=== PATIENT | female | born 1985 | race Caucasian/White ===

== ENCOUNTER 2016-05-17 17:38 | Inpatient (IN) | payer OTHER ==
[2016-05-17 18:17] VITALS: BMI 25.6
--- NOTE | 2016-05-17 20:55 | PCMAN ---
OB Admission Note - History : 3 Term: 2 : 0 Abortions (S&E): 0 Livin Gestational Age (weeks): 41 Days (#/7): 0 Admit Cervical Dilation:: 4.5 Admit Cervical Effacement (%):: 90 Admit Station:: -2 Admit Presentaton:: vtx Membrane Status: Intact Labor Onset (Date): 05/16/16 Labor Onset (Time): 04:30 Contractions: Yes Contraction Frequency:: 3-5 EFW:: 3800 Summary of Course:: 31yo jose 05/10/16; admitted in labor at 4-5cm. Pt has since progressed to ; cephalic. course is uncomplicated. GBS neg A-NEG, s/p rhogam at 27w Rubella non immune Pt declines IV, AROM at this time - Labs Blood Type: A (-) negative Rubella Status: Non-immune GBS Status: Negative - Physical Exam General: Mild Distress Psych/Mental Status: Mood/Affect Appropriate Abdomen: Other (efw 3800g) Genitourinary: Other (cx=/-, cephalic, soft, anterior) - Additional Comments 31 yo , admitted in labor FHT 130's, mod juan antonio, no decels TOCO ctx q4 min may use intermittent monitoring may ambulate further expectant management
--- NOTE | 2016-05-17 23:52 | PCMDEL ---
Delivery Note - Delivery Gender: Male Presentation: Cephalic Position: OA Umbilical Cord: 3 Vessel Delayed Cord Clamping:: 2-3 min 1 Minute Total: 9 5 Minute Total: 9 Placenta:: complete with 3vc EBL:: 200 Perineum:: no lacerations Comments:: Pt progressed well to FD. With pushing, baby rotated easily from OP to OA positions. Baby delivered to ALIREZA. Shoulders delivered easily. Bulb suction applied to mouth and nares. Baby delivered to abdomen. After brief delay, cord clamped and cut. Cord bloods collected. Placenta delivered with uterine massage, complete with 3VC. Fundus is firm. No lacerations. EBL 200cc. Baby M 9/9 apgars.
[2016-05-17] MEDS ORDERED: LANOLIN 50 APPLIC/7G TUBE TP PRN (23:57)
[2016-05-17] MEDS ORDERED: MAGNESIUM HYDROXIDE 30 ML UDCUP PO PRN (23:57)
[2016-05-17] MEDS ORDERED: SENNOSIDES 8.6 MG TABLET PO PRN (23:57)
[2016-05-17] MEDS ORDERED: DOCUSATE SODIUM 100 MG CAPSULE PO PRN (23:57)
[2016-05-17] MEDS ORDERED: IBUPROFEN 800 MG TABLET PO PRN (23:57)
[2016-05-17] MEDS ORDERED: OXYCODONE/ACETAMINOPHEN 5/325 MG TABLET PO PRN (23:57)
[2016-05-17] MEDS ORDERED: BENZOCAINE/MENTHOL 60 APPLIC/BOT TP PRN (23:57)
[2016-05-17] MEDS ORDERED: MEASLES,MUMPS&RUBELLA VACCINE 0.5 ML VIAL SUB-Q V ONE (23:57)
[2016-05-18 05:56] LABS: HEMATOCRIT 33.8 % (37.0-47.0)
--- NOTE | 2016-05-18 08:22 | PDOC44 ---
- Subjective Day: 1 Reports Pain Tolerable, Reports , Reports Lochia Moderate, Reports Tolerating Regular Diet, Denies Nausea, Denies Vomiting, Denies Fever - Objective Temp Pulse Resp BP Pulse Ox 99.0 F 64 14 95/51 05/18/16 04:17 05/18/16 04:17 05/18/16 04:17 05/18/16 04:17 Lab Results 05/18/16 05:30 Hgb 11.0 L Hct 33.8 L Current Medications Generic Name Dose Route Start Last Admin Trade Name Freq PRN Reason Stop Dose Admin Benzocaine/Menthol 1 applic 05/17/16 23:57 Dermoplast TP PRN PRN Patient Comfort Docusate Sodium 100 mg 05/17/16 23:57 Colace PO DAILY PRN Comfort Emollient Ointment 1 applic 05/17/16 23:57 [id number]-[id number] TP PRN PRN sore nipples Ibuprofen 800 mg 05/17/16 23:57 Motrin PO Q8H PRN Pain (Mild) Magnesium Hydroxide 30 ml 05/17/16 23:57 Milk Of Magnesia PO BEDTIME PRN Constipation Oxycodone/Acetaminophen 1 - 2 tab 05/17/16 23:57 Percocet 5/325 PO Q4H PRN Pain (Moderate) Senna 17.2 mg 05/17/16 23:57 Senokot PO BEDTIME PRN Comfort Sodium Chloride 10 ml 05/17/16 23:57 Normal Saline 10ml Flush IV PRN PRN IV Flush Sodium Chloride 10 ml 05/18/16 09:00 Normal Saline 10ml Flush IV Q8HR JAXSON - Physical Exam General: Afebrile, No Acute Distress Fundus: Firm, At Umbilicus Abdomen: No Tenderness, No Distention Disposition: Stable, Anticipate DC Home Tomorrow (doing well )
[2016-05-19 08:58] VITALS: BP 101/61
--- NOTE | 2016-05-19 10:11 | PDOC39B ---
Hospital Course: ADMIT DATE: 05/17/16 DISCHARGE DATE: term ADMISSION DIAGNOSES: labor PROCEDURES: normal vaginal delivery HISTORY OF PRESENT ILLNESS: 31 year old G3 T2 L2 at 41 weeks 0 days presenting with labor at term. HOSPITAL COURSE: The patient had a normal vaginal delivery. Baby male 8lbs 7oz 9/9 apgars was delivered. By day of discharge the patient is ambulating, eating, voiding, and passing flatus without difficulty. Pain is controlled and lochia is appropriate. She is []. Vital Signs - 24 hr 05/18/16 05/18/16 05/18/16 09:30 14:42 21:47 Temperature 98.2 F 98.2 F 98.1 F Pulse Rate 74 61 70 Respiratory 16 16 16 Rate Blood Pressure 92/54 90/51 100/53 05/19/16 05/19/16 05/19/16 01:38 03:58 08:56 Temperature 98.6 F 97.9 F Pulse Rate 65 75 Respiratory 16 18 Rate Blood Pressure 100/53 93/56 101/61 - Physical Exam Vital Signs: Temp Pulse Resp BP Pulse Ox 97.9 F 75 18 101/61 05/19/16 08:56 05/19/16 08:56 05/19/16 08:56 05/19/16 08:56
== END 2016-05-19 11:30 | disposition home or self-care (01) | DRG 775 ==
LOC: FBCOUT 17:38 → FBC 17:41 → FBCOUT 18:21 → FBC 18:21
PROVIDERS: ADMIT Obstetrics & Gynecology; ATTEND Obstetrics & Gynecology
PROC: 10E0XZZ Delivery of Products of Conception, External Approach (ICD-10-PCS; principal; 2016-05-17)
PROC: 3E0234Z Introduction of Serum, Toxoid and Vaccine into Muscle, Percutaneous Approach (ICD-10-PCS; 2016-05-19)
DX: O48.0 Post-term pregnancy (principal); O75.89 Other specified complications of labor and delivery; Z37.0 Single live birth; Z3A.41 41 weeks gestation of pregnancy